=== PATIENT | female | born 1960 | race Caucasian/White ===

== ENCOUNTER 2017-05-29 07:33 | Day surgery (SDC) | payer BC ==
[~2017-05-29] VITALS: Ht 152.4 cm; Wt 78.5 kg
[~2017-05-29 07:33] MED LIST: ADVAIR HFA120 INHAL1 IH; BUTRANS1 EACH TD; CATAPRES0.2 MG PO; COZAAR100 MG PO; CYMBALTA60 MG PO; ERGOCALCIF50000 UNIT PO; FLONASE SENSIM9.9 ML BOTH NARES; HYZAAR 100-21 TABLET PO; KLONOPIN0.5 M1 PO; LIPITOR20 MG PO; LYRICA100 MG PO; NAPROSYN500 MG PO; NASONEX17 GM BOTH NARES; NORVASC5 MG PO; PROAIR HFA8.5 GM IH; SINGULAIR10 MG PO; ZANAFLEX2 MG PO
[2017-05-29 08:07] LABS: POINT-OF-CARE METER ID UU14174212
== END 2017-05-29 09:20 | disposition home or self-care (01) ==
LOC: PAIN 07:33
PROVIDERS: Anesthesiology Pain Medicine
DX: M47.26 Other spondylosis with radiculopathy, lumbar region (principal); M48.061 Spinal stenosis, lumbar region without neurogenic claudication; M51.16 Intervertebral disc disorders with radiculopathy, lumbar region; M25.562 Pain in left knee; M25.561 Pain in right knee; J44.9 Chronic obstructive pulmonary disease, unspecified; I10 Essential (primary) hypertension; E78.00 Pure hypercholesterolemia, unspecified; E11.9 Type 2 diabetes mellitus without complications; F17.210 Nicotine dependence, cigarettes, uncomplicated
CPT/HCPCS: 82948; J1030; J2250; J3010; S0020

== ENCOUNTER 2017-06-05 07:34 | Day surgery (SDC) | payer BC ==
[~2017-06-05] VITALS: Ht 152.4 cm; Wt 78.5 kg
== END 2017-06-05 09:05 | disposition home or self-care (01) ==
LOC: PAIN 07:34 → SDC 08:15 → PAIN 08:15
DX: M47.26 Other spondylosis with radiculopathy, lumbar region (principal); M54.5 Low back pain; G89.29 Other chronic pain; M51.16 Intervertebral disc disorders with radiculopathy, lumbar region; M25.561 Pain in right knee; M25.562 Pain in left knee; I10 Essential (primary) hypertension; J44.9 Chronic obstructive pulmonary disease, unspecified; E78.00 Pure hypercholesterolemia, unspecified; F17.200 Nicotine dependence, unspecified, uncomplicated
CPT/HCPCS: J1030; J2250; J3010; S0020

== ENCOUNTER 2017-08-18 06:31 | Day surgery (SDC) | payer OTHER, BC ==
[~2017-08-18] VITALS: Ht 152.4 cm; Wt 78.5 kg
[~2017-08-18 06:31] MED LIST changes: +VITAMIN D-3 401 EACH PO
== END 2017-08-18 08:45 | disposition home or self-care (01) ==
LOC: PAIN 06:31 → SDC 07:30 → PAIN 07:30
DX: M47.26 Other spondylosis with radiculopathy, lumbar region (principal); M51.16 Intervertebral disc disorders with radiculopathy, lumbar region; M54.5 Low back pain; G89.29 Other chronic pain; I10 Essential (primary) hypertension; J44.9 Chronic obstructive pulmonary disease, unspecified; F17.200 Nicotine dependence, unspecified, uncomplicated; E78.00 Pure hypercholesterolemia, unspecified; R01.1 Cardiac murmur, unspecified; F41.9 Anxiety disorder, unspecified
CPT/HCPCS: J1030; J1885; J2250; J3010; S0020

== ENCOUNTER 2017-08-25 07:36 | Day surgery (SDC) | payer OTHER, BC ==
[~2017-08-25] VITALS: Ht 152.4 cm; Wt 80.7 kg
== END 2017-08-25 09:20 | disposition home or self-care (01) ==
LOC: PAIN 07:36 → SDC 08:30 → PAIN 09:20
DX: M47.816 Spondylosis without myelopathy or radiculopathy, lumbar region (principal); M51.26 Other intervertebral disc displacement, lumbar region; G62.1 Alcoholic polyneuropathy; M19.90 Unspecified osteoarthritis, unspecified site; F17.200 Nicotine dependence, unspecified, uncomplicated; J44.9 Chronic obstructive pulmonary disease, unspecified; I10 Essential (primary) hypertension; E78.00 Pure hypercholesterolemia, unspecified; E55.9 Vitamin D deficiency, unspecified
CPT/HCPCS: J1030; J2250; J3010; S0020

== ENCOUNTER 2018-03-10 09:34 | Day surgery (SDC) | payer OTHER, BC ==
[~2018-03-10] VITALS: Ht 152.4 cm; Wt 78.5 kg
[~2018-03-10 09:34] MED LIST changes: +NEURONTIN100 MG PO; +TOPAMAX25 MG PO
== END 2018-03-10 11:25 | disposition home or self-care (01) ==
LOC: PAIN 09:34 → SDC 10:00 → PAIN 11:25
PROC: 3E0T33Z Introduction of Anti-inflammatory into Peripheral Nerves and Plexi, Percutaneous Approach (ICD-10-PCS; principal; 2018-03-10)
PROC: 3E0T3BZ Introduction of Anesthetic Agent into Peripheral Nerves and Plexi, Percutaneous Approach (ICD-10-PCS; principal; 2018-03-10)
PROC: BR141ZZ Fluoroscopy of Cervical Facet Joint(s) using Low Osmolar Contrast (ICD-10-PCS; principal; 2018-03-10)
DX: M47.12 Other spondylosis with myelopathy, cervical region (principal); M46.92 Unspecified inflammatory spondylopathy, cervical region; M47.816 Spondylosis without myelopathy or radiculopathy, lumbar region; M54.16 Radiculopathy, lumbar region; I10 Essential (primary) hypertension; J44.9 Chronic obstructive pulmonary disease, unspecified; E78.00 Pure hypercholesterolemia, unspecified; F17.200 Nicotine dependence, unspecified, uncomplicated
CPT/HCPCS: J1030; J2250; J3010; S0020

== ENCOUNTER 2018-03-17 09:14 | Day surgery (SDC) | payer OTHER, BC ==
[~2018-03-17] VITALS: Ht 152.4 cm; Wt 78.5 kg
== END 2018-03-17 10:50 | disposition home or self-care (01) ==
LOC: PAIN 09:14 → SDC 10:00 → PAIN 10:50
DX: M47.812 Spondylosis without myelopathy or radiculopathy, cervical region (principal); M46.92 Unspecified inflammatory spondylopathy, cervical region; M50.00 Cervical disc disorder with myelopathy, unspecified cervical region; M51.36 Other intervertebral disc degeneration, lumbar region; M54.16 Radiculopathy, lumbar region; F17.200 Nicotine dependence, unspecified, uncomplicated
CPT/HCPCS: J1030; J2250; J3010; S0020